=== PATIENT | male | born 1965 | race Caucasian/White ===

== ENCOUNTER 2017-04-21 05:16 | Inpatient (IN) | payer OTHER ==
[2017-04-20 09:09] VITALS: BMI 45.2
[~2017-04-21] VITALS: Ht 172.7 cm; Wt 131.8 kg
[2017-04-21] VITALS (22 sets, daily range): BP systolic 84–153; BP diastolic 52–82; PULSE 82–99; RESP 10–21; Ht 172.7 cm; Wt 131.8 kg
[~2017-04-21 05:16] MED LIST: AMLO-147 PO; ASPI-535 PO; ATOR40TA68 PO; CYCL7.5T9 PO; GLIM4TAB PO; GLIP-95 PO; LANT3I SC; LOSA100T7 PO; METF850T PO; OMEP20CA16 PO; TRAZ150T65 PO
[2017-04-21] MEDS ORDERED: CEFAZOLIN 2 GM/50 ML (PMX) 50 ML IVPB SCH (06:00)
[2017-04-21] MEDS ORDERED: LACTATED RINGER'S 1,000 ML IV SCH ×2 (06:00)
[2017-04-21] MEDS ORDERED: PROPOFOL 20 ML ONE (06:32)
[2017-04-21] MEDS ORDERED: SUCCINYLCHOLINE CHLORIDE 100 MG/5 ML SYG IV ONE (06:32)
[2017-04-21] MEDS ORDERED: ROCURONIUM 50 MG INJ ONE (06:32)
[2017-04-21] MEDS ORDERED: FENTAnyl 50 MCG/ML VIAL ONE (06:32)
[2017-04-21] MEDS ORDERED: ONDANSETRON 4 MG INJ ONE (06:32)
--- NOTE | 2017-04-21 06:45 | HPN ---
Date/Time of Note Date/Time of Note DATE: 04/21/17 TIME: 06:45 Interval H&P Admission Note Pt. seen H&P reviewed: No system changes JAN العلي MD Apr 21, 2017 06:45
[2017-04-21] MEDS ORDERED: GELATIN SIZE 100 SPONGE ONE (06:55)
[2017-04-21] MEDS ORDERED: BUPIVACAINE 0.25% (MPF) 10 ML 10 ML VIAL ONE (06:55)
[2017-04-21] MEDS ORDERED: POLYMYXIN/BACITRACIN 1L IRRIG ONE (06:56)
[2017-04-21] MEDS ORDERED: THROMBIN 5000 UNIT VIAL ONE (06:56)
[2017-04-21] MEDS ORDERED: PHENYLephrine (100 MCG/ML) 5ML SYG ONE (08:57)
[2017-04-21] MEDS ORDERED: DEXTROSE 5%-0.45% NACL 1,000 ML IV SCH (10:47)
--- NOTE | 2017-04-21 10:55 | SIPON ---
Date/Time of Note Date/Time of Note DATE: 04/21/17 TIME: 10:51 Operative Report Preoperative Diagnosis Lumbar spinal stenosis at L2-L3-L4 and L5 Postoperative Diagnosis Same Operation/Procedure Performed Central decompressive laminectomy at L2 Central decompressive laminectomy at L3 Central decompressive laminectomy at L4 Central decompressive laminectomy at L5 Baxano foraminal decompression L5-S1 on the right Medial facetectomy and foraminotomy L2-3 L3-4 L4-5 and L5-S1 bilaterally Cosmetic wound closure (12 cm ) Lateral localizing lumbar radiographs (2) Intraoperative nerve monitoring (2-1/2 hours) Surgeon: JAN العلي MD produce assistant: MARCO DASILVA Anesthesia Type: general Estimated Blood Loss: other Transfusion Required: no Specimens Spinous processes of L2, L3, L4, and L5. Grafts/Implants: none Complications: no JAN العلي MD Apr 21, 2017 10:55
[2017-04-21] MEDS ORDERED: HYDROmorphONE 0.2 MG/ML PCA ONE (10:59)
[2017-04-21] MEDS ORDERED: BETHANECHOL 25 MG TAB PO PRN (11:00)
[2017-04-21] MEDS ORDERED: hydrALAzine 20 MG INJ IV PRN (11:00)
[2017-04-21] MEDS ORDERED: DIAZEPAM 5 MG/ML SYG IM PRN (11:00)
[2017-04-21] MEDS ORDERED: HYDROCODONE/APAP (5/325) TAB PO PRN (11:00)
[2017-04-21] MEDS ORDERED: FENTAnyl 50 MCG/ML VIAL IV PRN ×2 (11:00)
[2017-04-21] MEDS ORDERED: ONDANSETRON 4 MG INJ IV PRN ×2 (11:00)
[2017-04-21] MEDS ORDERED: TRIMETHOBENZAMIDE 100 MG/ML VIAL IM PRN (11:00)
[2017-04-21] MEDS ORDERED: AL HYDROX/MG HYDROX/SIMETH 30 ML CUP PO PRN (11:00)
[2017-04-21] MEDS ORDERED: DIAZEPAM 5 MG TAB PO PRN (11:00)
[2017-04-21] MEDS ORDERED: HYDROmorphONE (0.2 MG/ML) 10ML SYG IV PRN ×3 (11:00)
[2017-04-21] MEDS ORDERED: DIPHENHYDRAMINE 50 MG CAP PO PRN (11:00)
[2017-04-21] MEDS ORDERED: MEPERIDINE 25 MG INJ IV PRN (11:00)
[2017-04-21] MEDS ORDERED: NALOXONE (0.4 MG/ML) INJ IV PRN (11:00)
[2017-04-21] MEDS ORDERED: PROCHLORPERAZINE 10 MG TAB PO PRN (11:00)
[2017-04-21] MEDS ORDERED: LABETALOL HCL 20MG INJ IV PRN (11:00)
[2017-04-21] MEDS ORDERED: ACETAMINOPHEN 325 MG TAB PO PRN (11:00)
[2017-04-21] MEDS ORDERED: NACL 0.9% 3 ML SYG IV SCH (11:00)
[2017-04-21] MEDS: HYDROmorphONE 0.2 MG/ML PCA IV SCH ×2 (11:11→21:49)
--- NOTE | 2017-04-21 11:37 | RADRPT ---
PROCEDURE: XR Lumbar Spine one view. CLINICAL INDICATION: Low back pain. Intraoperative. TECHNIQUE: Prone portable cross-table lateral. COMPARISON: No prior studies are available for comparison. FINDINGS: For the purposes of this report, the last apparent true disc level is considered to be L5-S1. Based on this, the posterior needle markers are present overlying the spinous process is of lower L1 and L5. IMPRESSION: 1. Intraoperative imaging as described above. RPTAT: QQ .William Lema MD, MD Date Time Electronically viewed and signed by .William Lema MD, MD on 04/21/2017 11:37 .R/
--- NOTE | 2017-04-21 12:15 | OPR ---
DATE OF OPERATION: 04/21/2017 SURGEON: Faizan Sibley MD. MOLDING MACHINE TENDER: BIBI Kruse. ANESTHESIOLOGIST: Santhosh Mckee MD. PREOPERATIVE DIAGNOSES: Multilevel lumbar spinal stenosis from L2-L5. POSTOPERATIVE DIAGNOSIS: Multilevel lumbar spinal stenosis from L2-L5. OPERATION PERFORMED: 1. Central decompressive laminectomy, L2. 2. Central decompressive laminectomy, L3. 3. Central decompressive laminectomy at L4. 4. Central decompressive laminectomy, L5. 5. Baxano foraminal decompression L5-S1 on the right. 6. Medial facetectomy and foraminotomy, L2-3, L3-4, L4-5, and L5, S1 bilaterally. 7. Cosmetic wound closure (12 cm). 8. Lateral localized and lumbar radiographs (2). 9. Intraoperative nerve monitoring (2.5 hours). ANESTHESIA: General endotracheal. ESTIMATED BLOOD LOSS: 350 mL-none replaced. DRAINS: Two medium Hemovac drains employed. COMPLICATIONS: No complications. INDICATIONS: This is a 52-year-old male who sustained an injury to his back in the course of his employment on 09/08/2016. He has had extensive care since that time, he has remained symptomatic with back and lower extremity complaints, right greater than left, which have been unrelieved by conservative management. He has undergone a number of diagnostic studies including an MRI of the lumbar spine which demonstrated multilevel severe spinal stenosis and multilevel disc bulging. Treatment options were discussed with the patient, he elected to do surgery. OPERATIVE FINDINGS AT SURGERY: At surgery multilevel severe spinal stenosis and disc bulging was confirmed. No soft herniations were identified. The baseline intraoperative nerve monitoring revealed a decrease in the right L2 potential 30 percent. The right L3 potential 30 percent. The bilateral L4 potentials of 40 percent. The bilateral L5 potential of 40 percent. These all returned to normal at the completion of the surgery. OPERATION PERFORMED: With the patient in supine position, after satisfactory general tracheal anesthesia by Dr. Mckee, the patient was turned to the prone kneeling position on the Aurelia frame. All pressure points carefully padded. The back was prepped and draped usual sterile fashion. Athrombic Pumps were applied to the legs below the knees, venous stasis during and after procedure. An indwelling Donovan catheter was also placed preoperative to facilitate bladder drainage during and after the procedure. Two spinal needles placed next felt to be the L2 and L5 spinous processes, lateral radiograms taken which confirmed anatomic localization. A 12 cm incision encountered midline from L2 to sacrum through skin, subcutaneous tissue to the fascia. Superficial retractors were placed. Hemostasis secure with electrocautery. Throughout the procedure copious amounts of antibacterial irrigating solution used to periodically irrigate the wound. The fascia incised in midline with a hot knife, and bilateral sub-periosteal dissection carried out from L2 to the sacrum. Deep retractors were placed and deep hemostasis secure electrocautery. A second intraoperative radiograph was taken with Mary clamps placed and was felt to be the spinous processes of L2, L3, and L4. This was confirmed on the second x-ray. A central decompressive laminectomy at L5, L4, L3 and L2 was then carried out using a Fidelia right angle bone rongeur, Leksell rongeur, Kerrison punch and curettes. The operating microscope was moved into place. A medial facetectomy foraminotomy was accomplished until L2-3, L3-4, L4-5 and L5-S1 bilaterally using a small hand osteotome and mallet, Kerrison punch and curettes. The L2-3, L3-4, L4-5 and L5-S1 discs were inspected but were firm and did not merit removal the epidural hemostasis was secured with bipolar electrocautery setting. The foramina at L5-S1 on the right was still somewhat stenotic distally in the Baxano instrumentation was brought onto the field. The ipsi probe was placed into the right L5 foramen, but the white guide wire could not be passed and the tight radius ipsi the probe was then employed, and the wire was passed without difficulty. The neuro probe was then placed into the foramen and the L5 nerve root was isolated. With this having been assured, a 7.5 mm Baxano rasp was inserted into the foramen and multiple reciprocations carried out to enlarge the posterior aspect of the foramen. The instrumentation was withdrawn. The frame was flushed with 25 mL of irrigating solution. Additional hemostasis was secured with bipolar electrocautery on a low setting. The anesthesiologist was then asked to perform a second Valsalva maneuver 40 mmHg and no spinal fluid leak was noted. The wound was then closed in layers over 2 medium Hemovac drains, one below the fascia and one above the fascia was closed with #1 Stratafix sutures. The subcu tissue was closed with #2-0 Stratafix suture. The skin was closed with #4-0 Vicryl subcuticular cosmetic closing suture on the skin. Dermabond and sterile compressive dressings were applied. The patient tolerated procedures well and was then turned supine position onto his bed and extubated by Dr. Mckee. He was transported to the recovery room in satisfactory condition. At the conclusion procedure, sponge and needle counts were all correct. NEED FOR CAD DRAFTSMAN: During this spinal surgical procedure, my assistant press operator was used to retract and protect the spinal nerves and dural sac. My assistant press operator also employed the suction catheters to evacuate blood from the surgical field to improve visualization of the neural structures. The assistant press operator was medically necessary to facilitate the completion of the surgery in a safe and expeditious manner. State of [place] regulations, as well as hospital bylaws, preclude the use of non- licensed health care personnel such as operating room technicians, to perform these functions. Throughout the procedure neuro monitoring was carried out by [facility] [employer] including EMG, SSEP and MEP monitoring of the L2, L3, L4, L5 and S1 nerve roots bilaterally, along with spinal cord potentials. These were interpreted by a neurologist employed by [employer]. Dictated By: Faizan Sibley MD /frantz/isma /Document#: [id number] CC: Faizan Sibley MD; Tremaine Fuller MD
--- NOTE | 2017-04-21 12:47 | RADRPT ---
PROCEDURE: XR Lumbar Spine one view. CLINICAL INDICATION: Low back pain. Intraoperative. TECHNIQUE: Prone portable cross-table lateral. COMPARISON: Prior study done earlier the same day. FINDINGS: For the purposes of this report, the last apparent true disc level is considered to be L5-S1. Based on this, the posterior posterior surgical instruments are present overlying the spinous processes o f L2, L3, and L4. IMPRESSION: 1. Intraoperative imaging as described above. RPTAT: QQ .William Lema MD, Date Time Electronically viewed and signed by .William Lema MD, on 04/21/2017 12:46 .R/
[2017-04-21] MEDS: CEFAZOLIN 1 GM/50 ML (PMX) 50 ML IVPB SCH ×2 (12:50→17:47)
[2017-04-21] MEDS: LACTATED RINGER'S 1,000 ML IV SCH (13:53)
[2017-04-21] MEDS ORDERED: DEXTROSE 50% 50 ML SYRINGE IV PRN ×2 (15:30)
[2017-04-21] MEDS ORDERED: GLUCOSE GEL 15 GRAM TUBE BUCCAL PRN (15:30)
[2017-04-21] MEDS ORDERED: GLUCOSE GEL 15 GRAM TUBE PO PRN ×2 (15:30)
[2017-04-21] MEDS ORDERED: LOSARTAN 50 MG TAB PO ONE (15:30)
[2017-04-21] MEDS ORDERED: GLUCAGON 1 MG INJ IM PRN (15:30)
--- NOTE | 2017-04-21 15:37 | PN ---
Date/Time of Note Date/Time of Note DATE: 04/21/17 TIME: 15:31 Assessment/Plan Lines/Catheters IV Catheter Type (from Nrsg): Peripheral IV Urinary Cath still in place: Yes Assessment/Plan Assessment/Plan S/P Decomp. Laminectomy and Micro Discectomy L2-3, L3-4 and L4-L5 Dr. Montez has seen this patient and written for sliding scale insulin to cover this patient. Glucose post op is now 262. Subjective 24 Hr Interval Summary Free Text/Dictation Pt is feeling well post operatively. His pain level is about an 8/10 in his lower back, but no leg pain. No nausea, vomiting , SOB or chest pain. Constitutional: no complaints Exam/Review of Systems Vital Signs Vitals Vital Signs Date Time Temp Pulse Resp B/P Pulse Ox O2 Delivery O2 Flow Rate FiO2 04/21/17 13:56 97.5 97 18 149/78 97 04/21/17 11:44 Nasal Cannula 2.0 Exam Head: normocephalic Eyes: nl conjunctiva ENMT: nl external ears & nose Neck: supple Respiratory: clear to auscultation Cardiovascular: regular rate and rhythm Gastrointestinal: non-tender, soft Extremities: normal pulses Neurological: FIRE BEHAVIOR ANALYST II-XII intact, nl mental status Skin: nl turgor Results Results 24 hrs Laboratory Tests Test 04/21/17 05:53 04/21/17 10:36 04/21/17 13:32 Bedside Glucose 176 261 H 262 H Medications Medications Current Medications Acetaminophen/ Hydrocodone Bitart ([place] (5/325)) 1 tab Q4H PRN PO PAIN LEVEL 1 -5; Start 04/21/17 at 11:00 Acetaminophen/ Hydrocodone Bitart 2 tab 2 tab Q4H PRN PO PAIN LEVEL 6-10; Start 04/21/17 at 11:00 Cefazolin Sodium (Ancef 1 Gm/50 ml (Pmx)) 50 ml @ 100 mls/hr Q6 IVPB Last administered on 04/21/17t 12:50; Admin Dose 100 MLS/HR; Start 04/21/17 at 12:00 ; Stop 04/22/17 at 06:29 Prochlorperazine (Compazine) 10 mg Q4H PRN PO NAUSEA AND/OR VOMITING; Start at 11:00 Trimethobenzamide HCl (Tigan) 200 mg Q4H PRN IM NAUSEA AND/OR VOMITING; Start 04/21/17 at 11:00 Ondansetron HCl (Zofran Inj) 4 mg Q6H PRN IV NAUSEA AND/OR VOMITING Last administered on 04/21/17 12:58; Admin Dose 4 MG; Start 04/21/17 at 11:00 Al Hydrox/Mg Hydrox/Simethicone (Mag-Al Plus) 15 ml Q4H PRN PO CONSTIPATION; Start 04/21/17 at 11:00 Docusate Sodium (Colace) 100 mg BID PO ; Start 04/22/17 at 09:00 Acetaminophen (Tylenol Tab) 650 mg Q4H PRN PO TEMP GREATER THAN 101F OR ROLLINS; Start 04/21/17 at 11:00 Ascorbic Acid (Vitamin C) 1,000 mg BID PO ; Start 04/22/17 at 09:00 Ferrous Sulfate (Ferrous Sulfate (Ec)) 325 mg TID PO ; Start 04/22/17 at 09:00 Ranitidine HCl (Zantac) 150 mg BID PO ; Start 04/21/17 at 21:00 Diazepam (Valium) 5 mg Q4H PRN PO MUSCLE SPASMS; Start 04/21/17 at 11:00 Diazepam (Valium) 5 mg Q4H PRN IM MUSCLE SPASMS; Start 04/21/17 at 11:00 Phenol (Cepastat Lozenge) 1 lozenge PRN PRN MT SORE THROAT; Start 04/21/17 at 11:00 Bethanechol Chloride (Urecholine) 25 mg PRN PRN PO UNABLE TO VOID; Start at 11:00 Diphenhydramine HCl (Benadryl) 50 mg Q6H PRN PO PRURITUS; Start 04/21/17 at 11: 00 Hydromorphone HCl (Dilaudid CLINICAL ASSOC) Q4PCA IV Last administered on 04/21/17 11:11 ; Admin Dose 6 MG; Start 04/21/17 at 11:00 Naloxone HCl 0.2 mg 0.2 mg Q2M PRN IV RR 8 BREATHS/MIN OR LESS; Start 04/21/17 at 11:00 Lactated Ringer's (Lr) 1,000 ml @ 100 mls/hr Q10H IV Last administered on 9/13 /17at 13:53; Admin Dose 100 MLS/HR; Start 04/21/17 at 14:00 Miscellaneous Information (* Miscellaneous Pharmacy Order) Discontinue current oral sulfonylur... ONCE ONCE XX ; Start 04/21/17 at 15:30; Stop 04/21/17 at 15: 31 Diagnostic Test (Pha) (Accu-Chek) 1 ea 02 XX ; Start 04/22/17 at 02:00 Insulin Glargine (Lantus) 26 unit DAILY@08 SC ; Start 04/22/17 at 08:00 Miscellaneous Information (* Miscellaneous Pharmacy Order) HYPOGLYCEMIA PROTOCOL w... ONCE ONCE XX ; Start 04/21/17 at 15:30; Stop 04/21/17 at 15:31 Miscellaneous Information (* Miscellaneous Pharmacy Order) Discontinue all previ... ONCE ONCE XX ; Start 04/21/17 at 15:30; Stop 04/21/17 at 15:31 Diagnostic Test (Pha) (Accu-Chek) 1 ea 02 XX ; Start 04/22/17 at 02:00 Atorvastatin Calcium (Lipitor) 40 mg QHS PO ; Start 04/21/17 at 21:00 Losartan Potassium (Cozaar) 100 mg DAILY PO ; Start 04/22/17 at 09:00 Trazodone HCl (Desyrel) 150 mg QHS PO ; Start 04/21/17 at 21:00 Pantoprazole (Protonix Tab) 40 mg DAILY@06 PO ; Start 04/22/17 at 06:00 Losartan Potassium (Cozaar) 100 mg ONCE ONCE PO ; Start 04/21/17 at 15:30; Stop 04/21/17 at 15:31 Miscellaneous Information 1 ea NOTE XX ; Start 04/21/17 at 15:30 Glucose (Glutose) 15 gm Q15M PRN PO DECREASED GLUCOSE; Start 04/21/17 at 15:30 Glucose (Glutose) 22.5 gm Q15M PRN PO DECREASED GLUCOSE; Start 04/21/17 at 15: 30 Dextrose (D50w Syringe) 25 ml Q15M PRN IV DECREASED GLUCOSE; Start 04/21/17 at 15:30 Dextrose (D50w Syringe) 50 ml Q15M PRN IV DECREASED GLUCOSE; Start 04/21/17 at 15:30 Glucagon (Glucagen) 1 mg Q15M PRN IM DECREASED GLUCOSE; Start 04/21/17 at 15:30 Glucose (Glutose) 15 gm Q15M PRN BUCCAL DECREASED GLUCOSE; Start 04/21/17 at 15 :30 MAME REED MD Apr 21, 2017 15:37
[2017-04-21] MEDS: metFORMIN 850 MG TAB PO SCH (17:44)
[2017-04-21] MEDS: INSULIN ASPART [NOVOLOG] 3 ML PEN SC SCH ×3 (17:58→20:31)
--- NOTE | 2017-04-21 19:08 | CONS ---
Date/Time of Note Date/Time of Note DATE: 04/21/17 TIME: 19:05 Assessment/Plan Assessment/Plan Problems: (1) S/P lumbar laminectomy Onset Date: ~ 04/21/2017 Status: Acute Comment: He is postoperative and appears to be doing okay although he has the appropriate complaints of pain after surgery. Anticipate good outcome with good rehabilitation potential (2) Diabetes mellitus type 2 in obese Status: Chronic Comment: He has not enjoyed good blood sugar control. We will adjust his medications try and get under control and probably the using combination of orals with insulin to achieve the desired goals (3) Hyperlipidemia associated with type 2 diabetes mellitus Status: Chronic Comment: Continue with statin therapy (4) Essential hypertension Status: Chronic Comment: Continue with AURA inhibitors (5) Morbid obesity with BMI of 40.0-44.9, adult Status: Chronic Comment: Calorie restriction diet Consultation Date/Type/Reason Admit Date/Time Apr 21, 2017 at 05:16 Date of Consultation: Apr 21, 2017 Type of Consultation: Endocrinology Reason for Consultation Diabetes mellitus type 2; hypertension; hyperlipidemia; morbid obesity Referring Provider: MAME REED MD Hx of Present Illness 52-year-old gentleman who is brought in for repair of lumbar spinal stenosis quite symptomatic. He has a history of diabetes that has had variable control. Constitutional: no complaints Eyes: no complaints (Denies any ophthalmologic interventions for his diabetes reports recent negative eye evaluation) Respiratory: no complaints Cardiovascular: no complaints Gastrointestinal: no complaints Genitourinary: no complaints Musculoskeletal: no complaints Past Medical History Medical History: diabetes, high cholesterol, hypertension, other (Lumbar disc disease with significant sciatica) Past Surgical History Past Surgical Hx: noncontributory Family History Significant Family History: diabetes, hypertension Social History Alcohol Use: none Smoking Status: Never smoker Drug Use: none Exam/Review of Systems Vital Signs Vitals Vital Signs Date Time Temp Pulse Resp B/P Pulse Ox O2 Delivery O2 Flow Rate FiO2 04/21/17 17:15 85 18 119/64 Room Air 04/21/17 13:56 97.5 97 04/21/17 11:44 2.0 Exam Constitutional: alert, oriented Head: atraumatic, normocephalic Neck: non-tender, supple Respiratory: clear to auscultation, normal air movement Cardiovascular: nl pulses, regular rate and rhythm Gastrointestinal: nl liver, spleen, non-tender, soft Results Results 24 hrs Laboratory Tests Test 04/21/17 05:53 04/21/17 10:36 04/21/17 13:32 04/21/17 17:51 Bedside Glucose 176 261 H 262 H 241 H Medications Medications Current Medications Acetaminophen/ Hydrocodone Bitart ([place] (5/325)) 1 tab Q4H PRN PO PAIN LEVEL 1 -5; Start 04/21/17 at 11:00 Acetaminophen/ Hydrocodone Bitart 2 tab 2 tab Q4H PRN PO PAIN LEVEL 6-10; Start 04/21/17 at 11:00 Cefazolin Sodium (Ancef 1 Gm/50 ml (Pmx)) 50 ml @ 100 mls/hr Q6 IVPB Last administered on 04/21/17 17:47; Admin Dose 100 MLS/HR; Start 04/21/17 at 12:00 ; Stop 04/22/17 at 06:29 Prochlorperazine (Compazine) 10 mg Q4H PRN PO NAUSEA AND/OR VOMITING; Start at 11:00 Trimethobenzamide HCl (Tigan) 200 mg Q4H PRN IM NAUSEA AND/OR VOMITING; Start 04/21/17 at 11:00 Ondansetron HCl (Zofran Inj) 4 mg Q6H PRN IV NAUSEA AND/OR VOMITING Last administered on 04/21/17 12:58; Admin Dose 4 MG; Start 04/21/17 at 11:00 Al Hydrox/Mg Hydrox/Simethicone (Mag-Al Plus) 15 ml Q4H PRN PO CONSTIPATION; Start 04/21/17 at 11:00 Docusate Sodium (Colace) 100 mg BID PO ; Start 04/22/17 at 09:00 Acetaminophen (Tylenol Tab) 650 mg Q4H PRN PO TEMP GREATER THAN 101F OR ROLLINS; Start 04/21/17 at 11:00 Ascorbic Acid (Vitamin C) 1,000 mg BID PO ; Start 04/22/17 at 09:00 Ferrous Sulfate (Ferrous Sulfate (Ec)) 325 mg TID PO ; Start 04/22/17 at 09:00 Ranitidine HCl (Zantac) 150 mg BID PO ; Start 04/21/17 at 21:00 Diazepam (Valium) 5 mg Q4H PRN PO MUSCLE SPASMS; Start 04/21/17 at 11:00 Diazepam (Valium) 5 mg Q4H PRN IM MUSCLE SPASMS; Start 04/21/17 at 11:00 Phenol (Cepastat Lozenge) 1 lozenge PRN PRN MT SORE THROAT; Start 04/21/17 at 11:00 Bethanechol Chloride (Urecholine) 25 mg PRN PRN PO UNABLE TO VOID; Start at 11:00 Diphenhydramine HCl (Benadryl) 50 mg Q6H PRN PO PRURITUS; Start 04/21/17 at 11: 00 Hydromorphone HCl (Dilaudid RN INFUSION) Q4PCA IV Last administered on 04/21/17 11:11 ; Admin Dose 6 MG; Start 04/21/17 at 11:00 Naloxone HCl 0.2 mg 0.2 mg Q2M PRN IV RR 8 BREATHS/MIN OR LESS; Start 04/21/17 at 11:00 Lactated Ringer's (Lr) 1,000 ml @ 100 mls/hr Q10H IV Last administered on 04/21 13:53; Admin Dose 100 MLS/HR; Start 04/21/17 at 14:00 Diagnostic Test (Pha) (Accu-Chek) 1 ea 02 XX ; Start 04/22/17 at 02:00 Insulin Glargine (Lantus) 26 unit DAILY@08 SC ; Start 04/22/17 at 08:00 Diagnostic Test (Pha) (Accu-Chek) 1 ea 02 XX ; Start 04/22/17 at 02:00 Atorvastatin Calcium (Lipitor) 40 mg QHS PO ; Start 04/21/17 at 21:00 Losartan Potassium (Cozaar) 100 mg DAILY PO ; Start 04/22/17 at 09:00 Trazodone HCl (Desyrel) 150 mg QHS PO ; Start 04/21/17 at 21:00 Pantoprazole (Protonix Tab) 40 mg DAILY@06 PO ; Start 04/22/17 at 06:00 Miscellaneous Information 1 ea NOTE XX ; Start 04/21/17 at 15:30 Glucose (Glutose) 15 gm Q15M PRN PO DECREASED GLUCOSE; Start 04/21/17 at 15:30 Glucose (Glutose) 22.5 gm Q15M PRN PO DECREASED GLUCOSE; Start 04/21/17 at 15: 30 Dextrose (D50w Syringe) 25 ml Q15M PRN IV DECREASED GLUCOSE; Start 04/21/17 at 15:30 Dextrose (D50w Syringe) 50 ml Q15M PRN IV DECREASED GLUCOSE; Start 04/21/17 at 15:30 Glucagon (Glucagen) 1 mg Q15M PRN IM DECREASED GLUCOSE; Start 04/21/17 at 15:30 Glucose (Glutose) 15 gm Q15M PRN BUCCAL DECREASED GLUCOSE; Start 04/21/17 at 15 :30 LIZBETH GILMORE MD Apr 21, 2017 19:08
[2017-04-21] MEDS: traZODone 50 MG TAB PO SCH (20:28)
[2017-04-21] MEDS: RANITIDINE 150 MG TAB PO SCH (20:28)
[2017-04-21] MEDS: ACCU-CHEK XX SCH (20:28)
[2017-04-21] MEDS: ATORVASTATIN 40 MG TAB PO SCH (20:28)
[2017-04-21] MEDS: CEPASTAT LOZENGE MT PRN (20:31)
[2017-04-22 00:01] VITALS: BP 125/63; PULSE 86; RESP 18
[2017-04-22] MEDS: LACTATED RINGER'S 1,000 ML IV SCH ×3 (00:02→20:00)
[2017-04-22] MEDS: CEFAZOLIN 1 GM/50 ML (PMX) 50 ML IVPB SCH ×2 (00:03→05:43)
[2017-04-22] MEDS: ACCU-CHEK XX SCH ×5 (02:00→19:55)
[2017-04-22 04:00] VITALS: BP 129/65; PULSE 84; RESP 17
[2017-04-22 05:26] LABS: HEMATOCRIT 33.8 % (42.0-52.0)
[2017-04-22] MEDS: PANTOPRAZOLE (EC) 40 MG TAB PO SCH (05:42)
[2017-04-22 05:48] LABS: CALCIUM 8.4 mg/dl (8.4-10.2); CREATININE 0.99 mg/dl (0.61-1.24); POTASSIUM 3.8 mmol/L (3.5-5.1)
[2017-04-22] MEDS: HYDROmorphONE 0.2 MG/ML PCA IV SCH (06:34)
--- NOTE | 2017-04-22 07:20 | PN ---
Date/Time of Note Date/Time of Note DATE: 04/22/17 TIME: 07:19 Assessment/Plan Lines/Catheters IV Catheter Type (from [facility]): Peripheral IV Donovan in Place (from Nrs): Yes Subjective 24 Hr Interval Summary Patient is postop day #1 following a multilevel decompressive laminectomy from L2-L5. He is afebrile. Vascular structures are intact distally. A.m. work is unremarkable. His Hemovac output from last night is 100 cc and his Hemovac will be left in place. Physical therapy will mobilize him as tolerated. His indwelling Donovan catheter will be discontinued. Exam/Review of Systems Vital Signs Vitals Vital Signs Date Time Temp Pulse Resp B/P Pulse Ox O2 Delivery O2 Flow Rate FiO2 04/22/17 05:00 18 04/22/17 04:00 98.0 84 129/65 96 Nasal Cannula 2.0 Intake and Output 04/21/17 04/21/17 04/22/17 15:00 23:00 07:00 Intake Total 2300 ml 800 ml 2000 ml Output Total 470 ml 1360 ml 1600 ml Balance 1830 ml -560 ml 400 ml Results Result Diagram: 04/22/17 0447 04/22/17 0446 JAN العلي MD Apr 22, 2017 07:20
[2017-04-22 08:00] VITALS: BP 122/71; RESP 19
[2017-04-22] MEDS ORDERED: INSULIN GLARGINE [LANtus] 3 ML PEN SC SCH (08:00)
[2017-04-22] MEDS ORDERED: BETHANECHOL 25 MG TAB PO PRN (08:00)
[2017-04-22] MEDS: DOCUSATE SODIUM 100 MG CAP PO SCH ×2 (08:14→21:20)
[2017-04-22] MEDS: RANITIDINE 150 MG TAB PO SCH ×2 (08:14→21:20)
[2017-04-22] MEDS: FERROUS SULFATE (EC) 325 MG TAB PO SCH ×3 (08:14→21:21)
[2017-04-22] MEDS: ASCORBIC ACID 500 MG TAB PO SCH ×2 (08:15→21:21)
[2017-04-22] MEDS: LOSARTAN 50 MG TAB PO SCH (08:15)
[2017-04-22] MEDS: metFORMIN 850 MG TAB PO SCH ×2 (08:19→17:40)
[2017-04-22] MEDS: INSULIN ASPART [NOVOLOG] 3 ML PEN SC SCH ×7 (09:11→20:20)
[2017-04-22 10:53] LABS: ADD UMIC YES; UR ASCORBIC ACID NEGATIVE (NEGATIVE); UR BILIRUBIN (Dip) NEGATIVE (NEGATIVE); UR BLOOD (Dip) 1+ mg/dL (NEGATIVE); UR CLARITY CLEAR (CLEAR); UR COLOR YELLOW (YELLOW); UR GLUCOSE (Dip) 2+ mg/dL (NEGATIVE); UR KETONES (Dip) NEGATIVE (NEGATIVE); UR LEUKOCYTE ESTERASE (Dip) NEGATIVE Leu/ul (NEGATIVE); UR NITRITE (Dip) NEGATIVE (NEGATIVE); UR RBC 2 /HPF (0-5); UR SPECIFIC GRAVITY (Dip) 1.009 (1.003-1.030); UR TOTAL PROTEIN (Dip) 2+ mg/dl (NEGATIVE); UR UROBILINOGEN (Dip) NEGATIVE (NEGATIVE)
[2017-04-22] MEDS: HYDROCODONE/APAP (5/325) TAB PO PRN ×3 (11:55→20:06)
--- NOTE | 2017-04-22 18:05 | PN ---
Date/Time of Note Date/Time of Note DATE: 04/22/17 TIME: 18:01 Assessment/Plan VTE Prophylaxis VTE Prophylaxis Intervention: SCD's Lines/Catheters IV [facility]ter Type [facility]from [facility] Saline Lock Urinary Cath still in place: No Assessment/Plan Chief Complaint/Hosp Course 52-year-old gentleman who is brought in for repair of lumbar spinal stenosis quite symptomatic. He has a history of diabetes that has had variable control. Problems: (1) Morbid obesity with BMI of 40.0-44.9, adult Status: Chronic Comment: He is on a calorie restriction diet. Once his back is better and he is moving around he can work on his physical conditioning and decreasing his p.o. intake (2) Essential hypertension Status: Chronic Comment: Adequate control on current medication regimen. (3) Diabetes mellitus type 2 in obese Status: Chronic Comment: His sugar control as an outpatient was not adequate. His sugars are coming down nicely with adjustments in his insulin regimen. I will make some further adjustments. Please note adjustments are made today I do not anticipate being the final status (4) Hyperlipidemia associated with type 2 diabetes mellitus Status: Chronic Comment: Continue statin therapy (5) S/P lumbar laminectomy Onset Date: ~ 04/21/2017 Status: Acute Comment: As per orthopedic spinal surgery. He is doing well and getting around. Planning as per surgical instruction Subjective 24 Hr Interval Summary Free Text/Dictation Charming middle-aged gentleman lying in bed. He reports that his sugars are better. He is having surgical pain but otherwise reports he is doing well. Constitutional: no complaints (No fevers chills or sweats) Respiratory: no complaints Cardiovascular: no complaints Gastrointestinal: no complaints Genitourinary: no complaints Neurologic: no complaints Exam/Review of Systems Vital Signs Vitals Vital Signs Date Time Temp Pulse Resp B/P Pulse Ox O2 Delivery O2 Flow Rate FiO2 04/22/17 10:15 20 04/22/17 08:00 98.1 71 122/71 98 04/22/17 04:00 Nasal Cannula 2.0 Intake and Output 04/21/17 04/21/17 04/22/17 15:00 23:00 07:00 Intake Total 2300 ml 800 ml 2000 ml Output Total 470 ml 1360 ml 1600 ml Balance 1830 ml -560 ml 400 ml Exam Constitutional: alert, oriented Respiratory: clear to auscultation, normal air movement Cardiovascular: nl pulses, regular rate and rhythm Gastrointestinal: nl liver, spleen, non-tender, soft Results Result Diagram: 04/22/17 0447 04/22/17 0446 Results 24 hrs Laboratory Tests Test 04/21/17 20:27 04/22/17 02:03 04/22/17 04:46 04/22/17 04:47 Bedside Glucose 183 152 Sodium Level 136 Potassium Level 3.8 Chloride Level 100 Carbon Dioxide Level 28 Anion Gap 12 Blood Urea Nitrogen 10 Creatinine 0.99 Glucose Level 168 Hemoglobin A1c 10.1 H Calcium Level 8.4 Hemoglobin 11.0 L Hematocrit 33.8 L Test 04/22/17 08:39 04/22/17 10:02 04/22/17 10:10 04/22/17 12:46 Bedside Glucose 205 226 H 198 Urine Color YELLOW Urine Clarity CLEAR Urine pH 6.0 Urine Specific [place] 1.009 Urine Ketones NEGATIVE Urine Nitrite NEGATIVE Urine Bilirubin NEGATIVE Urine Urobilinogen NEGATIVE Urine Leukocyte Esterase NEGATIVE Urine Microscopic RBC 2 Urine Microscopic WBC 4 Urine Hemoglobin 1+ H Urine Glucose 2+ H Urine Total Protein 2+ H Test 04/22/17 13:44 04/22/17 17:37 Bedside Glucose 186 150 Medications Medications Current Medications Acetaminophen/ Hydrocodone Bitart ([place] (5/325)) 1 tab Q4H PRN PO PAIN LEVEL 1 -5; Start 04/21/17 at 11:00 Acetaminophen/ Hydrocodone Bitart ([place] (5/325)) 2 tab Q4H PRN PO PAIN LEVEL 6 -10 Last administered on 04/22/17 16:14; Admin Dose 2 TAB; Start 04/21/17 at 11 :00 Prochlorperazine (Compazine) 10 mg Q4H PRN PO NAUSEA AND/OR VOMITING; Start at 11:00 Trimethobenzamide HCl (Tigan) 200 mg Q4H PRN IM NAUSEA AND/OR VOMITING; Start 04/21/17 at 11:00 Ondansetron HCl (Zofran Inj) 4 mg Q6H PRN IV NAUSEA AND/OR VOMITING Last administered on 04/21/17 12:58; Admin Dose 4 MG; Start 04/21/17 at 11:00 Al Hydrox/Mg Hydrox/Simethicone (Mag-Al Plus) 15 ml Q4H PRN PO CONSTIPATION; Start 04/21/17 at 11:00 Docusate Sodium (Colace) 100 mg BID PO Last administered on 04/22/17 08:14; Admin Dose 100 MG; Start 04/22/17 at 09:00 Acetaminophen (Tylenol Tab) 650 mg Q4H PRN PO TEMP GREATER THAN 101F OR ROLLINS; Start 04/21/17 at 11:00 Ascorbic Acid (Vitamin C) 1,000 mg BID PO Last administered on 04/22/17 08:15 ; Admin Dose 1,000 MG; Start 04/22/17 at 09:00 Ferrous Sulfate (Ferrous Sulfate (Ec)) 325 mg TID PO Last administered on 13:06; Admin Dose 325 MG; Start 04/22/17 at 09:00 Ranitidine HCl (Zantac) 150 mg BID PO Last administered on 04/22/17 08:14; Admin Dose 150 MG; Start 04/21/17 at 21:00 Diazepam (Valium) 5 mg Q4H PRN PO MUSCLE SPASMS; Start 04/21/17 at 11:00 Diazepam (Valium) 5 mg Q4H PRN IM MUSCLE SPASMS; Start 04/21/17 at 11:00 Phenol (Cepastat Lozenge) 1 lozenge PRN PRN MT SORE THROAT Last administered on 04/21/17 20:31; Admin Dose 1 LOZENGE; Start 04/21/17 at 11:00 Diphenhydramine HCl (Benadryl) 50 mg Q6H PRN PO PRURITUS; Start 04/21/17 at 11: 00 Hydromorphone HCl (Dilaudid TO[employer] ASSEM[employer]ER WOOD) Q4PCA IV Last administered on 04/22/17 06:34 ; Admin Dose 6 MG; Start 04/21/17 at 11:00 Naloxone HCl 0.2 mg 0.2 mg Q2M PRN IV RR 8 BREATHS/MIN OR LESS; Start 04/21/17 at 11:00 Lactated Ringer's (Lr) 1,000 ml @ 100 mls/hr Q10H IV Last administered on 04/22 00:02; Admin Dose 100 MLS/HR; Start 04/21/17 at 14:00 Diagnostic Test (Pha) (Accu-Chek) 1 ea 02 XX ; Start 04/22/17 at 02:00 Insulin Glargine (Lantus) 26 unit DAILY@08 SC Last administered on 04/22/17 09 :12; Admin Dose 26 UNIT; Start 04/22/17 at 08:00 Diagnostic Test (Pha) (Accu-Chek) 1 ea 02 XX Last administered on 04/22/17 02: 12; Admin Dose 1 EA; Start 04/22/17 at 02:00 Atorvastatin Calcium (Lipitor) 40 mg QHS PO Last administered on 04/21/17 20: 28; Admin Dose 40 MG; Start 04/21/17 at 21:00 Losartan Potassium (Cozaar) 100 mg DAILY PO Last administered on 04/22/17 08: 15; Admin Dose 100 MG; Start 04/22/17 at 09:00 Trazodone HCl (Desyrel) 150 mg QHS PO Last administered on 04/21/17 20:28; Admin Dose 150 MG; Start 04/21/17 at 21:00 Pantoprazole (Protonix Tab) 40 mg DAILY@06 PO Last administered on 04/22/17 05 :42; Admin Dose 40 MG; Start 04/22/17 at 06:00 Miscellaneous Information 1 ea NOTE XX ; Start 04/21/17 at 15:30 Glucose (Glutose) 15 gm Q15M PRN PO DECREASED GLUCOSE; Start 04/21/17 at 15:30 Glucose (Glutose) 22.5 gm Q15M PRN PO DECREASED GLUCOSE; Start 04/21/17 at 15: 30 Dextrose (D50w Syringe) 25 ml Q15M PRN IV DECREASED GLUCOSE; Start 04/21/17 at 15:30 Dextrose (D50w Syringe) 50 ml Q15M PRN IV DECREASED GLUCOSE; Start 04/21/17 at 15:30 Glucagon (Glucagen) 1 mg Q15M PRN IM DECREASED GLUCOSE; Start 04/21/17 at 15:30 Glucose (Glutose) 15 gm Q15M PRN BUCCAL DECREASED GLUCOSE; Start 04/21/17 at 15 :30 Bethanechol Chloride (Urecholine) 25 mg PRN PRN PO UNABLE TO VOID Last administered on 04/22/17 10:19; Admin Dose 25 MG; Start 04/22/17 at 08:00 LIZBETH GILMORE MD Apr 22, 2017 18:05
[2017-04-22 20:00] VITALS: BP 113/67; RESP 18
[2017-04-22] MEDS: ATORVASTATIN 40 MG TAB PO SCH (21:20)
[2017-04-22] MEDS: traZODone 50 MG TAB PO SCH (21:21)
--- NOTE | 2017-04-22 21:43 | PN ---
Date/Time of Note Date/Time of Note DATE: 04/22/17 TIME: 21:38 Assessment/Plan Lines/Catheters IV Catheter Type (from Nrsg): Saline Lock Urinary Cath still in place: No Assessment/Plan Assessment/Plan Continue post op care per Dr. Sibley. Glucose 166 on sliding scale. Possible discharge on Wednesday04/23/2017. Subjective 24 Hr Interval Summary Free Text/Dictation Pt is feeling a fair amount of post op pain 6-8/10. Overall, he is otherwise doing well post operatively. His pain level is about a 6/10 in his lower back right now, but no leg pain. No nausea, vomiting , SOB or chest pain. He notes a little numbness in his left hand. Respiratory: no complaints Cardiovascular: no complaints Gastrointestinal: no complaints Genitourinary: no complaints Exam/Review of Systems Vital Signs Vitals Vital Signs Date Time Temp Pulse Resp B/P Pulse Ox O2 Delivery O2 Flow Rate FiO2 04/22/17 10:15 20 04/22/17 08:00 98.1 71 122/71 98 04/22/17 04:00 Nasal Cannula 2.0 Intake and Output 04/21/17 04/21/17 04/22/17 15:00 23:00 07:00 Intake Total 2300 ml 800 ml 2000 ml Output Total 470 ml 1360 ml 1600 ml Balance 1830 ml -560 ml 400 ml Exam Constitutional: alert, oriented, No well developed Respiratory: clear to auscultation, normal air movement Cardiovascular: nl pulses, regular rate and rhythm Gastrointestinal: nl liver, spleen, non-tender, soft Musculoskeletal: nl extremities to inspection Neurological: GARBAGE PICK UP WORKER II-XII intact, nl mental status, nl speech Skin: nl turgor Results Result Diagram: 04/22/17 0447 04/22/17 0446 Results 24 hrs Laboratory Tests Test 04/22/17 02:03 04/22/17 04:46 04/22/17 04:47 04/22/17 08:39 Bedside Glucose 152 205 Sodium Level 136 Potassium Level 3.8 Chloride Level 100 Carbon Dioxide Level 28 Anion Gap 12 Blood Urea Nitrogen 10 Creatinine 0.99 Glucose Level 168 Hemoglobin A1c 10.1 H Calcium Level 8.4 Hemoglobin 11.0 L Hematocrit 33.8 L Test 04/22/17 10:02 04/22/17 10:10 04/22/17 12:46 04/22/17 13:44 Bedside Glucose 226 H 198 186 Urine Color YELLOW Urine Clarity CLEAR Urine pH 6.0 Urine Specific [place] 1.009 Urine Ketones NEGATIVE Urine Nitrite NEGATIVE Urine Bilirubin NEGATIVE Urine Urobilinogen NEGATIVE Urine Leukocyte Esterase NEGATIVE Urine Microscopic RBC 2 Urine Microscopic WBC 4 Urine Hemoglobin 1+ H Urine Glucose 2+ H Urine Total Protein 2+ H Test 04/22/17 17:37 04/22/17 20:12 Bedside Glucose 150 166 Medications Medications Current Medications Acetaminophen/ Hydrocodone Bitart ([place] (5/325)) 1 tab Q4H PRN PO PAIN LEVEL 1 -5; Start 04/21/17 at 11:00 Acetaminophen/ Hydrocodone Bitart ([place] (5/325)) 2 tab Q4H PRN PO PAIN LEVEL 6 -10 Last administered on 04/22/17 20:06; Admin Dose 2 TAB; Start 04/21/17 at 11 :00 Prochlorperazine (Compazine) 10 mg Q4H PRN PO NAUSEA AND/OR VOMITING; Start at 11:00 Trimethobenzamide HCl (Tigan) 200 mg Q4H PRN IM NAUSEA AND/OR VOMITING; Start 04/21/17 at 11:00 Ondansetron HCl (Zofran Inj) 4 mg Q6H PRN IV NAUSEA AND/OR VOMITING Last administered on 04/21/17 12:58; Admin Dose 4 MG; Start 04/21/17 at 11:00 Al Hydrox/Mg Hydrox/Simethicone (Mag-Al Plus) 15 ml Q4H PRN PO CONSTIPATION; Start 04/21/17 at 11:00 Docusate Sodium (Colace) 100 mg BID PO Last administered on 04/22/17 21:20; Admin Dose 100 MG; Start 04/22/17 at 09:00 Acetaminophen (Tylenol Tab) 650 mg Q4H PRN PO TEMP GREATER THAN 101F OR ROLLINS; Start 04/21/17 at 11:00 Ascorbic Acid (Vitamin C) 1,000 mg BID PO Last administered on 04/22/17 21:21 ; Admin Dose 1,000 MG; Start 04/22/17 at 09:00 Ferrous Sulfate (Ferrous Sulfate (Ec)) 325 mg TID PO Last administered on 21:21; Admin Dose 325 MG; Start 04/22/17 at 09:00 Ranitidine HCl (Zantac) 150 mg BID PO Last administered on 04/22/17 21:20; Admin Dose 150 MG; Start 04/21/17 at 21:00 Diazepam (Valium) 5 mg Q4H PRN PO MUSCLE SPASMS; Start 04/21/17 at 11:00 Diazepam (Valium) 5 mg Q4H PRN IM MUSCLE SPASMS; Start 04/21/17 at 11:00 Phenol (Cepastat Lozenge) 1 lozenge PRN PRN MT SORE THROAT Last administered on 04/21/17 20:31; Admin Dose 1 LOZENGE; Start 04/21/17 at 11:00 Diphenhydramine HCl (Benadryl) 50 mg Q6H PRN PO PRURITUS; Start 04/21/17 at 11: 00 Hydromorphone HCl (Dilaudid INFORMATION TECHNOLOGY ASSISTANT) Q4PCA IV Last administered on 04/22/17 06:34 ; Admin Dose 6 MG; Start 04/21/17 at 11:00 Naloxone HCl 0.2 mg 0.2 mg Q2M PRN IV RR 8 BREATHS/MIN OR LESS; Start 04/21/17 at 11:00 Lactated Ringer's (Lr) 1,000 ml @ 100 mls/hr Q10H IV Last administered on 04/22 00:02; Admin Dose 100 MLS/HR; Start 04/21/17 at 14:00 Diagnostic Test (Pha) (Accu-Chek) 1 ea 02 XX ; Start 04/22/17 at 02:00 Diagnostic Test (Pha) (Accu-Chek) 1 ea 02 XX Last administered on 04/22/17 02: 12; Admin Dose 1 EA; Start 04/22/17 at 02:00 Atorvastatin Calcium (Lipitor) 40 mg QHS PO Last administered on 04/22/17 21: 20; Admin Dose 40 MG; Start 04/21/17 at 21:00 Losartan Potassium (Cozaar) 100 mg DAILY PO Last administered on 04/22/17 08: 15; Admin Dose 100 MG; Start 04/22/17 at 09:00 Trazodone HCl (Desyrel) 150 mg QHS PO Last administered on 04/22/17 21:21; Admin Dose 150 MG; Start 04/21/17 at 21:00 Pantoprazole (Protonix Tab) 40 mg DAILY@06 PO Last administered on 04/22/17 05 :42; Admin Dose 40 MG; Start 04/22/17 at 06:00 Miscellaneous Information 1 ea NOTE XX ; Start 04/21/17 at 15:30 Glucose (Glutose) 15 gm Q15M PRN PO DECREASED GLUCOSE; Start 04/21/17 at 15:30 Glucose (Glutose) 22.5 gm Q15M PRN PO DECREASED GLUCOSE; Start 04/21/17 at 15: 30 Dextrose (D50w Syringe) 25 ml Q15M PRN IV DECREASED GLUCOSE; Start 04/21/17 at 15:30 Dextrose (D50w Syringe) 50 ml Q15M PRN IV DECREASED GLUCOSE; Start 04/21/17 at 15:30 Glucagon (Glucagen) 1 mg Q15M PRN IM DECREASED GLUCOSE; Start 04/21/17 at 15:30 Glucose (Glutose) 15 gm Q15M PRN BUCCAL DECREASED GLUCOSE; Start 04/21/17 at 15 :30 Bethanechol Chloride (Urecholine) 25 mg PRN PRN PO UNABLE TO VOID Last administered on 04/22/17 10:19; Admin Dose 25 MG; Start 04/22/17 at 08:00 Insulin Glargine (Lantus) 28 unit DAILY@08 SC ; Start 04/23/17 at 08:00 MAME REED MD Apr 22, 2017 21:43
[2017-04-23 01:55] VITALS: BP 121/70; RESP 20
[2017-04-23] MEDS: HYDROCODONE/APAP (5/325) TAB PO PRN ×4 (01:59→13:16)
[2017-04-23] MEDS: ACCU-CHEK XX SCH ×4 (02:00→13:40)
[2017-04-23] MEDS: LACTATED RINGER'S 1,000 ML IV SCH ×2 (05:20→15:46)
[2017-04-23] MEDS: PANTOPRAZOLE (EC) 40 MG TAB PO SCH (06:09)
--- NOTE | 2017-04-23 07:15 | PN ---
Date/Time of Note Date/Time of Note DATE: 04/23/17 TIME: 07:08 Assessment/Plan Lines/Catheters IV Catheter Type (from Nrsg): Saline Lock Donovan in Place (from Nrsg): No Subjective 24 Hr Interval Summary Patient is postop day #2 following a 4 level decompressive laminectomy from L2 to the sacrum. He is resting comfortably in bed. His a.m. temperature is 99.8. Neurovascular structures are intact distally. His Hemovac had 10 cc of output , and was discontinued. His wound is clean and dry and was redressed. He will continue with his gait training with physical therapy, and may be discharged later today if cleared by physical therapy and is afebrile. Strict discharge precautions and instructions as well as follow-up arrangements have been discussed. Exam/Review of Systems Vital Signs Vitals Vital Signs Date Time Temp Pulse Resp B/P Pulse Ox O2 Delivery O2 Flow Rate FiO2 04/23/17 01:55 99.8 85 20 121/70 97 04/22/17 04:00 Nasal Cannula 2.0 Intake and Output 04/22/17 04/22/17 04/23/17 15:00 23:00 07:00 Intake Total 980 ml 800 ml Output Total 40 ml 2200 ml 1170 ml Balance -40 ml -1220 ml -370 ml Results Result Diagram: 04/22/17 0447 04/22/17 0446 JAN العلي MD Apr 23, 2017 07:15
[2017-04-23 07:32] VITALS: BP 102/51; RESP 19
[2017-04-23] MEDS ORDERED: INSULIN GLARGINE [LANtus] 3 ML PEN SC SCH (08:00)
[2017-04-23 08:40] VITALS: BP 133/71; PULSE 91
[2017-04-23] MEDS: DOCUSATE SODIUM 100 MG CAP PO SCH (08:53)
[2017-04-23] MEDS: RANITIDINE 150 MG TAB PO SCH (08:53)
[2017-04-23] MEDS: metFORMIN 850 MG TAB PO SCH ×2 (08:54→17:50)
[2017-04-23] MEDS: ASCORBIC ACID 500 MG TAB PO SCH (08:54)
[2017-04-23] MEDS: FERROUS SULFATE (EC) 325 MG TAB PO SCH ×2 (08:55→13:00)
[2017-04-23] MEDS: LOSARTAN 50 MG TAB PO SCH (08:55)
[2017-04-23] MEDS: INSULIN ASPART [NOVOLOG] 3 ML PEN SC SCH ×5 (09:01→17:50)
[2017-04-23] MEDS: CEPASTAT LOZENGE MT PRN (10:55)
[2017-04-23 14:00] VITALS: BP 114/59; RESP 18
--- NOTE | 2017-04-23 14:34 | CONS ---
Date/Time of Note Date/Time of Note DATE: 04/23/17 TIME: 14:30 Assessment/Plan Assessment/Plan Chief Complaint/Hosp Course 52-year-old gentleman who is brought in for repair of lumbar spinal stenosis quite symptomatic. He has a history of diabetes that has had variable control. Problems: (1) S/P lumbar laminectomy Onset Date: ~ 04/21/2017 Status: Acute Comment: Doing well; possible discharge (2) Hyperlipidemia associated with type 2 diabetes mellitus Status: Chronic Comment: Continue statin (3) Diabetes mellitus type 2 in obese Status: Chronic Comment: Good control (4) Essential hypertension Status: Chronic Comment: stable Consultation Date/Type/Reason Admit Date/Time Apr 21, 2017 at 05:16 Initial Consult Date 04/21/17 Type of Consultation: Endocrinology Reason for Consultation DM2; Morbid obesity Referring Provider: MAME REED MD 24 HR Interval Summary Constitutional: no complaints Exam/Review of Systems Vital Signs Vitals Vital Signs Date Time Temp Pulse Resp B/P Pulse Ox O2 Delivery O2 Flow Rate FiO2 04/23/17 08:40 91 133/71 04/23/17 08:40 2.0 04/23/17 07:32 98.1 19 98 04/22/17 04:00 Nasal Cannula Intake and Output 04/22/17 04/22/17 04/23/17 15:00 23:00 07:00 Intake Total 980 ml 800 ml Output Total 40 ml 2200 ml 1170 ml Balance -40 ml -1220 ml -370 ml Exam Constitutional: alert, oriented Respiratory: clear to auscultation, normal air movement Cardiovascular: nl pulses, regular rate and rhythm Results Result Diagram: 04/22/17 0447 04/22/17 0446 Results 24 hrs Laboratory Tests Test 04/22/17 17:37 04/22/17 20:12 04/23/17 02:05 04/23/17 08:47 Bedside Glucose 150 166 154 176 Test 04/23/17 10:58 04/23/17 12:57 Bedside Glucose 183 154 Medications Medications Current Medications Acetaminophen/ Hydrocodone Bitart ([place] (5/325)) 1 tab Q4H PRN PO PAIN LEVEL 1 -5; Start 04/21/17 at 11:00 Acetaminophen/ Hydrocodone Bitart ([place] (5/325)) 2 tab Q4H PRN PO PAIN LEVEL 6 -10 Last administered on 04/23/17 13:16; Admin Dose 2 TAB; Start 04/21/17 at 11 :00 Prochlorperazine (Compazine) 10 mg Q4H PRN PO NAUSEA AND/OR VOMITING; Start at 11:00 Trimethobenzamide HCl (Tigan) 200 mg Q4H PRN IM NAUSEA AND/OR VOMITING; Start 04/21/17 at 11:00 Ondansetron HCl (Zofran Inj) 4 mg Q6H PRN IV NAUSEA AND/OR VOMITING Last administered on 04/21/17 12:58; Admin Dose 4 MG; Start 04/21/17 at 11:00 Al Hydrox/Mg Hydrox/Simethicone (Mag-Al Plus) 15 ml Q4H PRN PO CONSTIPATION; Start 04/21/17 at 11:00 Docusate Sodium (Colace) 100 mg BID PO Last administered on 04/23/17 08:53; Admin Dose 100 MG; Start 04/22/17 at 09:00 Acetaminophen (Tylenol Tab) 650 mg Q4H PRN PO TEMP GREATER THAN 101F OR ROLLINS; Start 04/21/17 at 11:00 Ascorbic Acid (Vitamin C) 1,000 mg BID PO Last administered on 04/23/17 08:54 ; Admin Dose 1,000 MG; Start 04/22/17 at 09:00 Ferrous Sulfate (Ferrous Sulfate (Ec)) 325 mg TID PO Last administered on 13:00; Admin Dose 325 MG; Start 04/22/17 at 09:00 Ranitidine HCl (Zantac) 150 mg BID PO Last administered on 04/23/17 08:53; Admin Dose 150 MG; Start 04/21/17 at 21:00 Diazepam (Valium) 5 mg Q4H PRN PO MUSCLE SPASMS; Start 04/21/17 at 11:00 Diazepam (Valium) 5 mg Q4H PRN IM MUSCLE SPASMS; Start 04/21/17 at 11:00 Phenol (Cepastat Lozenge) 1 lozenge PRN PRN MT SORE THROAT Last administered on 04/23/17 10:55; Admin Dose 1 LOZENGE; Start 04/21/17 at 11:00 Diphenhydramine HCl (Benadryl) 50 mg Q6H PRN PO PRURITUS; Start 04/21/17 at 11: 00 Hydromorphone HCl (Dilaudid TACTICAL DECEPTION PLANS OFFICER) Q4PCA IV Last administered on 04/22/17 06:34 ; Admin Dose 6 MG; Start 04/21/17 at 11:00 Naloxone HCl 0.2 mg 0.2 mg Q2M PRN IV RR 8 BREATHS/MIN OR LESS; Start 04/21/17 at 11:00 Lactated Ringer's (Lr) 1,000 ml @ 100 mls/hr Q10H IV Last administered on 04/22 00:02; Admin Dose 100 MLS/HR; Start 04/21/17 at 14:00 Diagnostic Test (Pha) (Accu-Chek) 1 ea 02 XX ; Start 04/22/17 at 02:00 Diagnostic Test (Pha) (Accu-Chek) 1 ea 02 XX Last administered on 04/22/17 02: 12; Admin Dose 1 EA; Start 04/22/17 at 02:00 Atorvastatin Calcium (Lipitor) 40 mg QHS PO Last administered on 04/22/17 21: 20; Admin Dose 40 MG; Start 04/21/17 at 21:00 Losartan Potassium (Cozaar) 100 mg DAILY PO Last administered on 04/23/17 08: 55; Admin Dose 100 MG; Start 04/22/17 at 09:00 Trazodone HCl (Desyrel) 150 mg QHS PO Last administered on 04/22/17 21:21; Admin Dose 150 MG; Start 04/21/17 at 21:00 Pantoprazole (Protonix Tab) 40 mg DAILY@06 PO Last administered on 04/23/17 06 :09; Admin Dose 40 MG; Start 04/22/17 at 06:00 Miscellaneous Information 1 ea NOTE XX ; Start 04/21/17 at 15:30 Glucose (Glutose) 15 gm Q15M PRN PO DECREASED GLUCOSE; Start 04/21/17 at 15:30 Glucose (Glutose) 22.5 gm Q15M PRN PO DECREASED GLUCOSE; Start 04/21/17 at 15: 30 Dextrose (D50w Syringe) 25 ml Q15M PRN IV DECREASED GLUCOSE; Start 04/21/17 at 15:30 Dextrose (D50w Syringe) 50 ml Q15M PRN IV DECREASED GLUCOSE; Start 04/21/17 at 15:30 Glucagon (Glucagen) 1 mg Q15M PRN IM DECREASED GLUCOSE; Start 04/21/17 at 15:30 Glucose (Glutose) 15 gm Q15M PRN BUCCAL DECREASED GLUCOSE; Start 04/21/17 at 15 :30 Bethanechol Chloride (Urecholine) 25 mg PRN PRN PO UNABLE TO VOID Last administered on 04/22/17 10:19; Admin Dose 25 MG; Start 04/22/17 at 08:00 Insulin Glargine (Lantus) 28 unit DAILY@08 SC Last administered on 04/23/17 09 :03; Admin Dose 28 UNIT; Start 04/23/17 at 08:00 LIZBETH GILMORE MD Apr 23, 2017 14:34
[2017-04-23 15:00] VITALS: BP 113/63; PULSE 110; RESP 16
[2017-04-23] MEDS ORDERED: INSULIN ASPART [NOVOLOG] 3 ML PEN SC SCH (17:55)
[2017-04-24] MEDS ORDERED: INSULIN GLARGINE [LANtus] 3 ML PEN SC SCH (08:00)
== END 2017-04-23 19:00 | disposition home or self-care (01) | DRG 516 ==
LOC: REC 05:16 → MS1 11:41
PROVIDERS: ADMIT Orthopaedic Surgery; ATTEND Orthopaedic Surgery
PROC: 4A11X4G Monitoring of Peripheral Nervous Electrical Activity, Intraoperative, External Approach (ICD-10-PCS; 2017-04-21)
PROC: 01NB0ZZ Release Lumbar Nerve, Open Approach (ICD-10-PCS; principal; 2017-04-21 07:00)
DX: M48.06 Spinal stenosis, lumbar region (principal); Z68.41 Body mass index [BMI] 40.0-44.9, adult; I10 Essential (primary) hypertension; E11.9 Type 2 diabetes mellitus without complications; E66.9 Obesity, unspecified; E78.5 Hyperlipidemia, unspecified
CPT/HCPCS: 72020; 80048; 81001; 82962; 83036; 85014; 85018; 86850; 86900; 86901; 86920; 87086; 97116; 97162; 97530; J0690; J1170; J1815; J2370; J2405; J3010; J7042; J7120; J7999

== ENCOUNTER → 2017-05-25 | Outpatient (CLI) | payer OTHER ==
[~2017-05-25] MED LIST changes: -ASPI-535 PO
[2017-05-25 09:27] LABS: CREATININE 1.06 mg/dl (0.61-1.24)
== END | disposition home or self-care (01) ==
LOC: LAB 08:47
PROVIDERS: ATTEND Orthopaedic Surgery
DX: M51.26 Other intervertebral disc displacement, lumbar region (principal)
CPT/HCPCS: 82565; 84520